=== PATIENT | male | born 1960 | race Caucasian/White ===

== ENCOUNTER 2021-06-14 09:28 | Day surgery (SDC) | payer OTHER, SELFPAY ==
--- NOTE | 2021-06-13 11:06 | P.CONAN_ITS ---
Documented by User: Marcie Wilkes NP 06/13/21 11:07 HPI - Anesthesia Eval Consult details Narrative: 61yo M for Colonoscopy [facility] Past Medical History Medical History CVA (cerebral vascular accident) Elevated cholesterol History of diverticulitis History of pilonidal cyst HTN (hypertension) Hx of rotator cuff tear JAJA on CPAP Surgical History Surgical History Hx of colonoscopy Hx of knee surgery Hx of umbilical hernia repair Social History Social History Patient Tobacco Use Status: Former Tobacco user Are you DNR?: No Advance Directives: No Advance Directives Information Provided: Yes Meds Allergies Allergy/AdvReac Type Severity Reaction Status Date / Time oxycodone Allergy Unknown Verified 04/06/21 15:00 Home Medications Medication Instructions Recorded Confirmed Last Taken Type amlodipine 10 mg tablet 10 mg PO DAILY 04/06/21 Unknown History aspirin 81 mg tablet,delayed 81 mg PO DAILY 04/06/21 06/11/21 History release losartan 04/06/21 Unknown History metoprolol succinate 50 mg capsule 50 mg PO DAILY 04/06/21 Unknown History sprinkle, ext. release 24 hr rosuvastatin 40 mg tablet (Crestor) 40 mg PO DAILY 04/06/21 Unknown History omega-3 fatty acids PO 06/14/21 06/14/21 06/07/21 History Exam Exam Date and Time: June 13, 2021 1106 Assessment and Plan Assessment Anesthesia Assessment: Chart Reviewed Documented by User: Kendy Reilly MD 06/14/21 10:48 [facility] Past Medical History Medical History CVA (cerebral vascular accident) Elevated cholesterol History of diverticulitis History of pilonidal cyst HTN (hypertension) Hx of rotator cuff tear JAJA on CPAP Surgical History Surgical History Hx of colonoscopy Hx of knee surgery Hx of umbilical hernia repair Social History Social History Patient Tobacco Use Status: Former Tobacco user Are you DNR?: No Advance Directives: No Advance Directives Information Provided: Yes Meds Allergies Allergy/AdvReac Type Severity Reaction Status Date / Time oxycodone Allergy Unknown Verified 04/06/21 15:00 Home Medications Medication Instructions Recorded Confirmed Last Taken Type amlodipine 10 mg tablet 10 mg PO DAILY 04/06/21 Unknown History aspirin 81 mg tablet,delayed 81 mg PO DAILY 04/06/21 06/11/21 History release losartan 04/06/21 Unknown History metoprolol succinate 50 mg capsule 50 mg PO DAILY 04/06/21 Unknown History sprinkle, ext. release 24 hr rosuvastatin 40 mg tablet (Crestor) 40 mg PO DAILY 04/06/21 Unknown History omega-3 fatty acids PO 06/14/21 06/14/21 06/07/21 History Exam Airway Mallampati Class: III TM Dist: >3cm Neck ROM: Full Loose/Missing/Broken Teeth: No Heart: RRR Lungs: CTA Assessment and Plan Final Anesthetic Review NPO: Yes ASA Class: III Final Preanesthetic Review: Meds/Allgs Chart Reviewed, Consent Obtained/Reviewed and Anes Risks/Benef Reviewed Patient Risk: Intermediate Procedure Risk: Low Anesthetic Plan Anesthetic Plan: MAC: Disposition: Standard PACU
[2021-06-14 09:01] VITALS: BMI 37.0
[2021-06-14 09:30] VITALS: BP 143/88; PULSE 72; RESP 17; TEMP 36.1; O2SAT 96
[2021-06-14] MEDS: Lactated Ringers 1,000 ML 100 ML IVCONT (09:55)
[2021-06-14 11:31] VITALS: BP 119/74; PULSE 87; RESP 20; TEMP 36.6; O2SAT 95
--- NOTE | 2021-06-14 11:34 | P.BOP_ITS ---
Brief Operative Note Date of Service: 06/14/21 Pre-op diagnosis: Screening Post-op diagnosis: other (Internal hemorrhoids, normal anastomosis) Procedure: Colonoscopy to the cecum and TI Surgeon: Aleks Dale Anesthesia: MAC Was an Production [employer] Cans used for this Procedure?: No Estimated blood loss (mL): 0 Pathology: none sent Condition: stable Disposition: PACU
[2021-06-14 11:46] VITALS: BP 129/80; PULSE 79; RESP 18; TEMP 36.6; O2SAT 94
--- NOTE | 2021-06-14 12:11 | MHC.HEMONC ---
PATIENT WAS GIVEN HIS MONEY BACK THAT WAS IN THE HOSPITAL SAFE. MONEY COUNTED BY THIS RN, PATIENT AND ANOTHER RN.
--- NOTE | 2021-06-14 12:31 | OP_ITS ---
SURGEON: Aleks aDle MD INDICATIONS: The patient presents for evaluation of colorectal cancer screening. Full consent was obtained from him for this, including risks of bleeding and perforation. PREOPERATIVE DIAGNOSIS: Colorectal cancer screening. POSTOPERATIVE DIAGNOSIS: PROCEDURE PERFORMED: Colonoscopy to the cecum and terminal ileum. ESTIMATED BLOOD LOSS: COMPLICATIONS: ANESTHESIA: Monitored anesthesia care. ASSISTANTS: SPECIMENS: POSTOPERATIVE DIAGNOSES: Colorectal cancer screening, normal anastomosis, internal hemorrhoids. DESCRIPTION OF PROCEDURE: The patient was placed in the left lateral decubitus position. The digital rectal exam revealed no abnormalities. The Olympus video pediatric colonoscope was entered into the rectum and advanced easily to the cecum. Once in the cecum, I did identify normal-appearing cecal pouch with appendiceal orifice and a normal-appearing ileocecal valve. The terminal ileum was cannulated and appeared normal. The scope was withdrawn back in the colon. The entire cecum and ileocecal valve appeared normal. The scope was slowly withdrawn assessing all mucosal surfaces carefully. Preparation was excellent. I did not visualize any sign of polyps, colitis, or angiodysplasia. His anastomosis was seen at approximately 25 cm and appeared normal. In the rectum, scope was retroflexed visualizing internal hemorrhoids, but no other pathology. The rectal mucosa appeared normal. The scope was straightened and withdrawn from the patient. He tolerated the procedure well and was returned to recovery area in stable condition. IMPRESSION: 1. Internal hemorrhoids. 2. Normal anastomosis. PLAN: Given the negative exam and negative family history, I would recommend a followup colonoscopy in 10 years for further screening. He was advised to resume his aspirin today. Aleks Dale MD RMW/MODL / [id number]
== END 2021-06-14 12:13 | disposition home or self-care (01) ==
PROVIDERS: PCP Internal Medicine; Visit Provider Internal Medicine
PROC: 0DJD8ZZ Inspection of Lower Intestinal Tract, Via Natural or Artificial Opening Endoscopic (ICD-10-PCS; CPT 45378; principal; 2021-06-14 10:30)
DX: Z12.11 Encounter for screening for malignant neoplasm of colon (principal); K64.8 Other hemorrhoids; Z98.0 Intestinal bypass and anastomosis status; Z87.19 Personal history of other diseases of the digestive system; I10 Essential (primary) hypertension; E78.5 Hyperlipidemia, unspecified; Z79.82 Long term (current) use of aspirin; Z79.899 Other long term (current) drug therapy; Z88.8 Allergy status to other drugs, medicaments and biological substances; Z86.73 Personal history of transient ischemic attack (TIA), and cerebral infarction without residual deficits; Z87.891 Personal history of nicotine dependence
CPT/HCPCS: 45378; J2250